=== PATIENT | female | born 1960 | race Caucasian/White ===

== ENCOUNTER 2017-08-28 09:27 | Day surgery (SDC) | payer BC ==
[~2017-08-28 09:27] MED LIST: ASPIRIN325 MG PO; ATORVASTATIN CA40 MG PO; CALCIUM CITRATE1 TAB PO; CLONAZEP ODT1 MG PO; CYCLOBENZAPR10 MG PO; GINGER PO; MAXZIDE-2537.5 MG/TA PO; METOPROL TAR100 MG PO; NASONEX50 MCG/AC NAB; NORCO1 TAB PO; PRILOSEC40 MG PO; SUPER B-COMPLEX PO; TUMERIC CURCUMIN PO; WOMEN'S VITA PO
[2017-08-28 12:18] VITALS: BP 142/75
== END 2017-08-28 12:35 | disposition home or self-care (01) | DRG 391 ==
LOC: ENDO 09:27
PROVIDERS: ATTEND Internal Medicine Gastroenterology
PROC: 0DB48ZX Excision of Esophagogastric Junction, Via Natural or Artificial Opening Endoscopic, Diagnostic (ICD-10-PCS; principal; 2017-08-28)
PROC: 0DB78ZX Excision of Stomach, Pylorus, Via Natural or Artificial Opening Endoscopic, Diagnostic (ICD-10-PCS; 2017-08-28)
PROC: 0DBL8ZX Excision of Transverse Colon, Via Natural or Artificial Opening Endoscopic, Diagnostic (ICD-10-PCS; 2017-08-28)
DX: K29.70 Gastritis, unspecified, without bleeding (principal); K57.31 Diverticulosis of large intestine without perforation or abscess with bleeding; D12.3 Benign neoplasm of transverse colon; K31.9 Disease of stomach and duodenum, unspecified; K22.70 Barrett's esophagus without dysplasia; K21.9 Gastro-esophageal reflux disease without esophagitis; K44.9 Diaphragmatic hernia without obstruction or gangrene; K64.4 Residual hemorrhoidal skin tags; K64.8 Other hemorrhoids; R19.7 Diarrhea, unspecified; K59.00 Constipation, unspecified; I10 Essential (primary) hypertension; E78.00 Pure hypercholesterolemia, unspecified; Z80.0 Family history of malignant neoplasm of digestive organs; Z86.010 Personal history of colon polyps